=== PATIENT | female | born 1985 | race Caucasian/White ===

== ENCOUNTER 2017-01-02 08:23 | Emergency (ER) | payer OTHER ==
[~2017-01-02] VITALS: Ht 165.1 cm; Wt 133.0 kg
[2017-01-02] MEDS ORDERED: SODIUM CHLORIDE 0.9% 1,000ML IVBOLUS ONE (09:00)
[2017-01-02 09:15] LABS: HEMOGLOBIN 13.4 g/dL (11.7-16.4)
[2017-01-02] MEDS ORDERED: OMEP-110 PO (10:00)
[2017-01-02 10:01] LABS: BLOOD UREA NITROGEN 8 mg/dL (7-18)
[2017-01-02 10:06] LABS: ASPARTATE AMINO TRANSFERASE 16 U/L (15-37)
[2017-01-02 11:11] VITALS: BP 151/69
== END 2017-01-02 11:28 | disposition home or self-care (01) ==
LOC: ED 10:20
DX: N39.0 Urinary tract infection, site not specified (principal); N12 Tubulo-interstitial nephritis, not specified as acute or chronic; R19.8 Other specified symptoms and signs involving the digestive system and abdomen
CPT/HCPCS: 36415; 76700; 80053; 81001; 84703; 85025; 87086; 96360; 99285; J7030